=== PATIENT | male | born 1940 | race Caucasian/White ===

== ENCOUNTER 2018-03-18 16:08 | Emergency (ER) | payer OTHER ==
[2018-03-18 16:14] VITALS: BP 158/85
--- NOTE | 2018-03-18 16:44 | EDPHY ---
H & P Stated Complaint: l leg swelling with hx dvt Time Seen by Provider: 03/18/18 16:24 HPI/ROS: CHIEF COMPLAINT: "I am here for an ultrasound" HISTORY OF PRESENT ILLNESS: 77-year-old male with prior history of DVT left lower extremity, factor 5 Leiden mutation, history of left lower extremity stenting in 2014, on chronic Xarelto therapy, in the ER for ultrasound left lower extremity after being evaluated at Urgent Care for new left lower extremity asymmetrical edema, told to go to the ER for ultrasound. The patient sustained an abrasion approximately 10 days ago from a branch, developed localized erythema to the left tibial region for which he was started on Keflex for which he has been on 6 days and notes near complete resolution. Of erythema. Notes no pain. He denies: Discoloration, pain, chest pain, dyspnea, headache, syncope or near syncope. PRIMARY CARE PROVIDER:Abdi Chi REVIEW OF SYSTEMS: 10 systems reviewed and negative with the exception of the elements mentioned in the history of present illness PAST MEDICAL & SURGICAL HISTORY: Factor 5 Leiden mutation. Chronic back pain. PTSD. SOCIAL HISTORY: Nonsmoker PHYSICAL EXAM (Prior to examination, patient consented to physical exam, hands were washed and my usual and customary physical exam procedures followed) 1) GENERAL: Well-developed, well-nourished, alert and oriented. Appears to be in no acute distress. 2) HEAD: Normocephalic, atraumatic 3) HEENT: Pupils equal, round, reactive to light bilaterally. Sclera anicteric. 4) NECK: Full range of motion, no meningeal signs. 5) LUNGS: Clear auscultation bilaterally, no wheezes, no rhonchi, no retractions. 6) HEART: Regular rate and rhythm, no murmur, no heave, no gallop. 7) ABDOMEN: No guarding, no rebound, no focal tenderness, 8) MUSCULOSKELETAL: Left lower extremity: Asymmetrical edema, left lateral fibular lesion which is granulating appropriately with no lymphangitic streaking , soft compartments, no crepitus. Soft compartments. DP PT pulses present and brisk. Capillary refill less than 2 sec, normal color and normal, warm temperature distally. Otherwise, Moving all extremities, no focal areas of tenderness, no obvious trauma. No peripheral edema or discoloration. 9) BACK: No CVA tenderness, no midline vertebral tenderness, no fluctuance, no step-off, no obvious trauma, no visual or palpable abnormality. 10) SKIN: No rash, no petechiae. 11) Psychiatric: Patient is oriented X 3, there is no agitation. DIFFERENTIAL DIAGNOSIS: In no particular include but limited to DVT, occluded stent, arterial occlusion, phlegmasia alba dolens, phlegmasia cerulea dolens - Personal History Current Tetanus Diphtheria and Acellular Pertussis (TDAP): Yes - Medical/Surgical History Hx Asthma: No Hx Chronic Respiratory Disease: No Hx Diabetes: No Hx Cardiac Disease: No Hx Renal Disease: No Hx Cirrhosis: No Hx Alcoholism: Yes Hx HIV/AIDS: No Hx Splenectomy or Spleen Trauma: No Other PMH: MEDICAL- KIDNEY STONES, SKULL FX AND "BROKEN BACK" AT AGE 9 l dvt - Social History Smoking Status: Former smoker Constitutional: Initial Vital Signs Temperature (C) 36.4 C 03/18/18 16:11 Heart Rate 59 L 03/18/18 16:11 Respiratory Rate 18 03/18/18 16:11 Blood Pressure 158/85 H 03/18/18 16:11 O2 Sat (%) 96 03/18/18 16:11 O2 Delivery Mode Room Air Allergies/Adverse Reactions: No Known Allergies Allergy (Verified 03/18/18 16:10) Home Medications: Medication Instructions Recorded Diazepam [Valium 2 MG (*)] 1 mg PO DAILY PRN 05/13/13 Melatonin [Melatonin 3 MG (*)] 6 mg PO HS 05/13/13 Omeprazole [Prilosec 20 mg] 20 mg PO DAILY PRN 05/13/13 Ascorbic Acid [Vitamin C 500 mg 500 mg PO DAILY 08/11/14 (*)] Herbals/Supplements -Info Only 1 ea PO DAILY 08/11/14 Multivitamins [Multivitamin (*)] 1 tab PO DAILY 08/11/14 Vitamin B Complex [B-100 Complex] 1 tab PO DAILY 08/11/14 Acetaminophen [Tylenol 325mg (*)] 650 mg PO Q4 PRN #0 tab 08/13/14 Rivaroxaban [Xarelto] 15 mg PO BID #42 tab 08/13/14 Rivaroxaban [Xarelto] 20 mg PO DAILY #30 tab 08/13/14 CEPHALEXIN 03/18/18 Medical Decision Making - Diagnostics Imaging Results: Imaging Impressions Extremity Venous Study 03/18/18 16:24 Impression: No evidence of deep vein thrombosis. Findings discussed with Neha Harding 03/18/2018 at 17:13. Images reviewed myself ED Course/Re-evaluation: 4:44 p.m.: I reviewed the patient's old medical record. He is here for an ultrasound. He is already on Xarelto. He has been neurovascularly intact with warm color and temperature distally and brisk pulses both DP and PT and brisk capillary refill. Care of patient under supervision of secondary supervising physician Dr Ta with whom I discussed case. Patient was re-evaluated with serial exams in the negative ultrasound results were discussed with the patient. He is neurovascularly intact with no clinical evidence of occlusion, no evidence of ischemia, no evidence of phlegmasia cerulea/alba dolens. Plan will be discharge. Given my usual and customary discharge precautions instructions Departure - Departure Disposition: Home, Routine, Self-Care Clinical Impression: Swelling of left lower extremity Condition: Good Instructions: Leg Edema (ED) Additional Instructions: Return to the ER if you develop leg discoloration, leg pain, or any other symptoms that concern you Referrals: A[facility] [Primary Care Provider] - 03/20/18
== END 2018-03-18 17:48 | disposition home or self-care (01) ==
DX: M79.89 Other specified soft tissue disorders (principal); D68.2 Hereditary deficiency of other clotting factors; Z79.01 Long term (current) use of anticoagulants; Z86.718 Personal history of other venous thrombosis and embolism; Z95.5 Presence of coronary angioplasty implant and graft; Z87.891 Personal history of nicotine dependence

== ENCOUNTER → 2018-06-29 | Outpatient (CLI) | payer OTHER ==
[~2018-06-29] MED LIST: IOPAMIDOL (ISOVUE-300) 100 ML BTL ONE
== END ==
LOC: FIMAGING 09:00
PROVIDERS: ATTEND Family Medicine
DX: R10.9 Unspecified abdominal pain (principal); K57.32 Diverticulitis of large intestine without perforation or abscess without bleeding
CPT/HCPCS: 74177; Q9967; 82565-PO